=== PATIENT | female | born 1990 | race Caucasian/White ===

== ENCOUNTER 2018-11-17 07:30 | Inpatient (IN) | payer BC ==
--- NOTE | 2018-11-16 22:55 | PREOPHP ---
DATE OF ADMISSION: 11/11/2018 HISTORY OF PRESENT ILLNESS: This is a 28-year-old female, 1, para 0 with an EDC of 9, last period of 02/17/2018. This patient had seen me in the office since 20 weeks of her and she had an uneventful , and she had only GBS-positive results on her culture. Otherwis e, she had a normal evolution of her . She gained about 20 pounds during this , an d at this time, the baby is 39 weeks with breech presentation. The patient is advised for a primary section due to breech presentation. PAST MEDICAL HISTORY: Unremarkable. She has had no surgeries, no medical antecedents. FAMILY HISTORY: Also noncontributory. ALLERGIES: SHE IS NOT ALLERGIC TO ANY MEDICATION. SOCIAL HISTORY: She does not drink or smoke. No history of drugs. PHYSICAL EXAMINATION: VITAL SIGNS: At this time, she is 5 feet 6 inches and she weighs 179 pounds. Her blood pressure is 120/80, pulse is 80, respirations 16. HEAD AND NECK: Normal. CHEST: Clear. HEART: Normal sinus rhythm. LUNGS: Clear. BREASTS: Soft, nontender. No masses. ABDOMEN: Soft. PELVIC: Uterus at term with normal heart tones. Breech presentation. The cervix is closed, l aimee and posterior. EXTREMITIES: Normal with normal pulses, normal reflexes and no edema. DIAGNOSIS: Term at 39 weeks, breech presentation. PLAN: She is undergoing a primary section. She has been advised of the possible risks and possible complications of the procedure with her alternatives and options. Written information was p rovided. She had no more questions and agreed to go ahead with the procedure with full understanding . Dictated By: GERALD BUNDY/NTS Conf#: [id number] DID#: [id number]
[~2018-11-17] VITALS: Ht 170.2 cm; Wt 81.0 kg
[~2018-11-17 07:30] MED LIST: OXYTOCIN 30 UNITS/LR 500 ML BAG IV ONE
[2018-11-17 07:54] VITALS: BP 120/73; PULSE 75; RESP 16; Ht 170.2 cm; Wt 81.0 kg
[2018-11-17] MEDS ORDERED: OXYTOCIN 30 UNITS/LR 500 ML IV SCH ×2 (08:00→11:23)
[2018-11-17] MEDS ORDERED: CEFAZOLIN 2 GM/50 ML (PMX) 50 ML IVPB SCH (08:00)
[2018-11-17] MEDS ORDERED: CARBOPROST 250 MCG INJ IM PRN ×2 (08:00→11:30)
[2018-11-17] MEDS ORDERED: METHYLERGONOVINE 0.2 MG INJ IM PRN ×2 (08:00→11:30)
[2018-11-17] MEDS ORDERED: MISOPROSTOL 200 MCG TAB PR PRN ×2 (08:00→11:30)
[2018-11-17] MEDS ORDERED: OXYTOCIN 30 UNITS/LR 500 ML IV PRN ×2 (08:00→11:30)
[2018-11-17] MEDS: LACTATED RINGER'S 1,000 ML IV SCH ×2 (08:15→11:23)
[2018-11-17] MEDS ORDERED: ONDANSETRON 4 MG INJ ONE (10:09)
[2018-11-17] MEDS ORDERED: morphine SULFATE/PF (10 MG/10 ML) INJ ONE (10:09)
[2018-11-17] MEDS ORDERED: OXYTOCIN 10 UNIT INJ ONE (10:10)
[2018-11-17] MEDS ORDERED: PHENYLephrine 10 MG INJ ONE (10:19)
[2018-11-17] MEDS ORDERED: METOCLOPRAMIDE 10 MG INJ ONE (10:58)
--- NOTE | 2018-11-17 11:02 | PREAC ---
Date/Time of Note Date/Time of Note DATE: 11/17/18 TIME: 10:59 Anesthesia Eval and Record Evaluation Time Pre-Procedure Interview DATE: 11/17/18 TIME: 10:59 Age 28 Sex female NPO: 8 hrs Preoperative diagnosis IUP Planned procedure Csection Past Medical History Past Medical History: None Surgery & Anesthesia Issues No known issue Meds Anticoagulation: No Beta Lis within 24 hr: No Reason Beta Lis not given: Pt. not on B-Lis No Active Prescriptions or Reported Meds Current Medications Lactated Ringer's 1,000 ml @ 125 mls/hr Q8H IV Last administered on 11/17/18at 08:15; Admin Dose 125 MLS/HR; Start 11/17/18 at 07:31 Cefazolin Sodium/ Dextrose 50 ml @ 100 mls/hr ONCE IVPB ; Start 11/17/18 at 08:00 Oxytocin/Lactated Ringer's 500 ml @ 125 mls/hr POST IV ; Start 11/17/18 at 08:00 Oxytocin/Lactated Ringer's 500 ml @ 0 mls/hr ONCE PRN IV .VAGINAL BLEEDING; Start 11/17/18 at 08:00 Methylergonovine Maleate (Methergine) 0.2 mg ONCE PRN IM .VAGINAL BLEEDING; Start 11/17/18 at 08:00 Carboprost Tromethamine (Hemabate) 250 mcg ONCE PRN IM .VAGINAL BLEEDING; Start 11/17/18 at 08:00 Misoprostol (Cytotec) 1,000 mcg ONCE PRN [place] .VAGINAL BLEEDING; Start 11/17/18 at 08:00 Meds reviewed: Yes Allergies Coded Allergies: No Known Allergy (Unverified , 08/07/18) Allergies Reviewed: Yes Labs/Studies Labs Reviewed: Reviewed by anesthesiologist Result Diagram: 11/17/18 0808 Laboratory Tests 11/17/18 08:08 Blood Bank Test 11/17/18 08:08 Antibody Screen NEGATIVE Blood Type A POSITIVE Rh Immune Globulin Candidate NO test: N/A Studies: ECG Pre-procedure Exam Last vitals Vital Signs Date Temp Pulse Resp B/P (MAP) Pulse Ox O2 O2 Flow FiO2 Time Delivery Rate 11/17/18 98.6 75 16 120/73 Room Air 07:54 (89) Airway: Adequate mouth opening, Adequate thyromental dist Mallampati: Mallampati II Teeth: Normal Lung: Normal Heart: Normal ASA Physical Status ASA physical status: 2 Emergency: None Planned Anesthetic Neuraxial: Spinal Planned Pain Management Parenteral pain med Pre-operative Attestations Prior to commencing anesthesia and surgery, the patient was re-evaluated, there was verification of: *The patient's identity *The results of appropriate recent lab work and preoperative vital signs *The above evaluation not changing prior to induction *Anesthetic plan, risk benefits, alternative and complications discussed with patient/family; questions answered; patient/family understands, accepts and wishes to proceed. BENOIT JONES MD Nov 17, 2018 11:02
--- NOTE | 2018-11-17 11:23 | SIPON ---
Date/Time of Note Date/Time of Note DATE: 11/17/18 TIME: 11:21 Operative Report Preoperative Diagnosis 39 weeks Breech presentation Admission for primary section Postoperative Diagnosis Same plus early fibroid uterus Operation/Procedure Performed Primary low segment transverse section Surgeon see signature line assistant art director Dr. Gonzales Anesthesia: spinal Estimated blood loss: other Transfusion Required none Specimen Placenta Grafts/Implants none Complications none GERALD SCOTT MD Nov 17, 2018 11:23
[2018-11-17] MEDS ORDERED: LANOLIN HPA 1 PKT TOP PRN (11:30)
[2018-11-17] MEDS ORDERED: HYDROCODONE/APAP (5/325) TAB PO PRN (11:30)
[2018-11-17] MEDS ORDERED: NA PHOSPHATE/BIPHOS 133 ML ENEMA PR PRN (11:30)
[2018-11-17] MEDS: CEFAZOLIN 2 GM/50 ML (PMX) 50 ML IVPB SCH ×2 (11:30→20:25)
[2018-11-17] MEDS ORDERED: METHYLERGONOVINE 0.2 MG TAB PO PRN (11:30)
--- NOTE | 2018-11-17 11:46 | PAC ---
Date/Time of Note Date/Time of Note DATE: 11/17/18 TIME: 11:45 Post-Anesthesia Notes Post-Anesthesia Note Last documented vital signs Vital Signs Date Temp Pulse Resp B/P (MAP) Pulse Ox O2 O2 Flow FiO2 Time Delivery Rate 11/17/18 98.6 75 16 120/73 Room Air 07:54 (89) Activity: WNL Respiratory function: WNL Cardiovascular function: WNL Mental status: Baseline Pain reasonably controlled: Yes Hydration appropriate: Yes Nausea/Vomiting absent: Yes Comments BP:112/56, P:78, Spo2:100%, T:98,8 BENOIT JONES MD Nov 17, 2018 11:46
[2018-11-17] MEDS ORDERED: DIPHENHYDRAMINE 50 MG INJ IV PRN (12:00)
[2018-11-17] MEDS ORDERED: NALOXONE (0.4 MG/ML) INJ IV PRN (12:00)
[2018-11-17] MEDS ORDERED: KETOROLAC 30 MG INJ IV PRN (12:00)
--- NOTE | 2018-11-17 12:48 | OPR ---
DATE OF OPERATION: 11/17/2018 PROCEDURE: Primary low segment transverse section. PREOPERATIVE DIAGNOSIS: 39 weeks , breech presentation. POSTOPERATIVE DIAGNOSES: 1. 39 weeks , breech presentation. 2. Fibroid uterus. PROCEDURE: Primary low segment transverse section. SURGEON: Geradl Scott MD OIM ARCHITECT: Chaka Gonzales MD ANESTHESIA: Dr. Hernandez. ESTIMATED BLOOD LOSS: About 600 mL. COMPLICATIONS: Without complications. PROCEDURE: The patient was given epidural anesthesia, placed in the supine position. The abdomen wa s prepped and draped, and an incision was made suprapubically 2 cm up the pubic bone of about 10 cm i n diameter. The abdomen was opened in layers without difficulties. Abdominal cavity was reached. T he bladder flap was made, and the uterus was opened in the midline with a scalpel and the incision wa s increased laterally on either side for about 3 inches. The amniotic fluid was clear. The breech w as brought out to the incision. It was a sindy breech presentation. The baby was delivered as a fra nk breech presentation, delivering the arms first and then the finger was placed on the baby's mouth to bend the head and bring the baby out. There was a baby girl, 5, 7 and 9. The cord was clam ped and cut. The piece of the cord was sent for cord pH, which was not sent in due to the good statu s of the baby. The cord blood was obtained. The placenta was removed. The uterus was swabbed out a nd the cervix was opened with a ring forceps. The uterus was closed in 2 layers with 0 PDS looped ortiz ture, imbedding the first line of sutures. Hemostasis was good. Both tubes and ovaries were normal. The uterus with tiny intramural fibroids. The abdominal cavity was cleaned out and the peritoneum was closed with a 2-0 Vicryl suture. The fascia was closed with 0 PDS looped suture and 2-0 Vicryl f or the subcutaneous tissue, 3-0 Monocryl subcuticular to the skin. The Dermabond and Steri-Strips we re applied. The patient tolerated the procedure well and left the OR awake and stable. Sponge count s and instrument counts were correct. Intravenous antibiotics were given for prophylaxis. Blood los s was minimal and about 600 mL and the urine was clear at the end of the procedure. Dictated By: GERALD BUNDY/JOSE Conf#: [id number] DID#: [id number] CC: GERALD SCOTT MD;*EndCC*
[2018-11-17] MEDS: KETOROLAC 30 MG INJ IV SCH ×2 (13:37→18:23)
[2018-11-17] MEDS: morphine 2 MG INJ IV PRN ×2 (15:47→22:56)
[2018-11-17 16:15] VITALS: BP 121/77; PULSE 76; RESP 18
[2018-11-17 16:45] VITALS: BP 120/73; PULSE 82; RESP 18
[2018-11-17 17:45] VITALS: BP 114/61; PULSE 79; RESP 18
[2018-11-17 20:10] VITALS: BP 112/60; PULSE 63; RESP 18
[2018-11-17] MEDS: SENNA/DOCUSATE NA (8.6MG/50MG) TAB PO SCH (21:00)
[2018-11-18] MEDS: KETOROLAC 30 MG INJ IV SCH ×4 (00:21→18:14)
[2018-11-18] MEDS: LACTATED RINGER'S 1,000 ML IV SCH ×2 (00:40→09:27)
[2018-11-18] MEDS: CEFAZOLIN 2 GM/50 ML (PMX) 50 ML IVPB SCH (04:11)
[2018-11-18] MEDS: morphine 2 MG INJ IV PRN ×2 (04:15→09:27)
[2018-11-18 04:56] VITALS: BP 94/58; PULSE 84; RESP 18
[2018-11-18 08:00] VITALS: BP 97/54; PULSE 74; RESP 19
[2018-11-18] MEDS: SENNA/DOCUSATE NA (8.6MG/50MG) TAB PO SCH ×2 (09:27→21:00)
--- NOTE | 2018-11-18 10:40 | PN ---
Date/Time of Note Date/Time of Note DATE: 11/18/18 TIME: 10:38 Assessment/Plan Lines/Catheters IV Catheter Type (from Nrsg): Peripheral IV Subjective 24 Hr Interval Summary Day 1 post Afebrile, feels good Passing some gases Hungry Incision healing good and dry Uterus contracted Breast-feeding Encouraged ambulation Constitutional: no complaints Feeding: advancing diet Pain Control: mild Detailed Summary Eyes: no complaints ENT: no complaints Respiratory: no complaints Cardiovascular: no complaints Gastrointestinal: no complaints Genitourinary: no complaints Musculoskeletal: no complaints Skin: no complaints Neurologic: no complaints Endocrine: no complaints Lymphatic: no complaints Psychological: no complaints, nl mood/affect Immunologic: no complaints Exam/Review of Systems Vital Signs Vitals Vital Signs Date Temp Pulse Resp B/P (MAP) Pulse Ox O2 O2 Flow FiO2 Time Delivery Rate 11/18/18 98.1 84 18 94/58 (70) 97 Room Air 04:56 Intake and Output 11/17/18 11/17/18 11/18/18 1515:00 23:00 07:00 IntakeIntake Total 1000 ml 750 ml OutputOutput Total 600 ml 200 ml BalanceBalance 400 ml 550 ml Exam Constitutional: alert, oriented, well developed Psych: no complaints, nl mood/affect Head: normocephalic, atraumatic Eyes: nl conjunctiva, EOMI, nl lids, nl sclera ENMT: nl external ears & nose, nl lips & teeth, nl nasal mucosa & septum, mucosa pink and moist Neck: supple, non-tender Respiratory: clear to auscultation, normal air movement Cardiovascular: regular rate and rhythm, nl pulses Gastrointestinal: soft, nl liver, spleen, non-tender Musculoskeletal: nl extremities to inspection, nl gait and stance Extremities: normal pulses Neurological: BRIM ROUNDER II-XII intact, nl mental status, nl speech, nl strength Skin: nl turgor, rash or lesions Lymph: nl lymph nodes Results Result Diagram: 11/18/18 0802 GERALD SCOTT MD Nov 18, 2018 10:40
[2018-11-18] MEDS ORDERED: BISACODYL (EC) 5 MG TAB PO ONE (11:00)
[2018-11-18 11:30] VITALS: BP 100/52; PULSE 81; RESP 19
[2018-11-18 16:11] VITALS: BP 107/62; PULSE 80; RESP 18
[2018-11-18 20:10] VITALS: BP 113/70; PULSE 68; RESP 20
[2018-11-18] MEDS: HYDROCODONE/APAP (5/325) TAB PO PRN (22:24)
[2018-11-19] MEDS: HYDROCODONE/APAP (5/325) TAB PO PRN ×4 (02:44→21:42)
[2018-11-19 04:15] VITALS: BP 110/59; PULSE 73; RESP 18
[2018-11-19] MEDS: KETOROLAC 30 MG INJ IV SCH ×2 (05:51)
[2018-11-19 08:30] VITALS: BP 100/60; PULSE 72; RESP 18
[2018-11-19] MEDS: SENNA/DOCUSATE NA (8.6MG/50MG) TAB PO SCH ×2 (10:02→21:41)
--- NOTE | 2018-11-19 11:50 | PN ---
Date/Time of Note Date/Time of Note DATE: 11/19/18 TIME: 11:49 Assessment/Plan Lines/Catheters IV Catheter Type (from Nrsg): Saline Lock Subjective 24 Hr Interval Summary Day 2 post Afebrile Feels good Breast-feeding Uterus contracted Incision healing well Passing gases Possible home in the morning Constitutional: no complaints Feeding: advancing diet Pain Control: mild Detailed Summary Eyes: no complaints ENT: no complaints Respiratory: no complaints Cardiovascular: no complaints Gastrointestinal: no complaints Genitourinary: no complaints Musculoskeletal: no complaints Skin: no complaints Neurologic: no complaints Endocrine: no complaints Lymphatic: no complaints Psychological: no complaints, nl mood/affect Immunologic: no complaints Exam/Review of Systems Vital Signs Vitals Vital Signs Date Temp Pulse Resp B/P (MAP) Pulse Ox O2 O2 Flow FiO2 Time Delivery Rate 11/19/18 97.9 72 18 100/60 Room Air 08:30 (73) 11/18/18 98 08:00 Intake and Output 11/18/18 11/18/18 11/19/18 1515:00 23:00 07:00 IntakeIntake Total 300 ml OutputOutput Total 1000 ml 950 ml BalanceBalance -700 ml -950 ml Exam Constitutional: alert, oriented, well developed Psych: no complaints, nl mood/affect Head: normocephalic, atraumatic Eyes: nl conjunctiva, EOMI, nl lids, nl sclera ENMT: nl external ears & nose, nl lips & teeth, nl nasal mucosa & septum, mucosa pink and moist Neck: supple, non-tender Respiratory: clear to auscultation, normal air movement Cardiovascular: regular rate and rhythm, nl pulses Gastrointestinal: soft, nl liver, spleen, non-tender Musculoskeletal: nl extremities to inspection, nl gait and stance Extremities: normal pulses Neurological: ACCOUNT OFFICER II-XII intact, nl mental status, nl speech, nl strength Skin: nl turgor, rash or lesions Lymph: nl lymph nodes Results Result Diagram: 11/18/18 0802 GERALD SCOTT MD Nov 19, 2018 11:50
[2018-11-19] MEDS ORDERED: BISACODYL (EC) 5 MG TAB PO ONE (12:00)
[2018-11-19 15:30] VITALS: BP 117/55; PULSE 80; RESP 18
[2018-11-19 20:00] VITALS: BP 116/65; PULSE 84; RESP 20
[2018-11-20 04:00] VITALS: BP 108/60; PULSE 82; RESP 18
[2018-11-20] MEDS: ACETAMINOPHEN 325 MG TAB PO PRN ×2 (05:31→09:56)
[2018-11-20] MEDS ORDERED: DIPHTH/TET/ACEL PERTUSS (ADULT) 0.5 ML VIAL IM* ONE (09:00)
[2018-11-20] MEDS: SENNA/DOCUSATE NA (8.6MG/50MG) TAB PO SCH (09:56)
[2018-11-20 10:00] VITALS: BP 124/78; PULSE 92; RESP 18
[2018-11-20] MEDS: HYDROCODONE/APAP (5/325) TAB PO PRN (11:54)
--- NOTE | 2018-11-20 12:15 | PD.PPDC ---
EQUITY DIRECTOR Discharge Instruction Diagnosis [id number] Final Diagnosis: Yjoui2w s/p primary c/s for breech presentation Condition [id number] Patient Condition: Spajb9d Stable Diet [id number] Diet: Jezbz7w Resume Regular Diet Activity/Restrictions [id number] Activity: Xrvam4s May Shower [id number] Restrictions: Dswrr3p No Exercising No Lifting Minimize Stair-climbing No Sexual Activity Nothing in the Vagina No [place] No Tampons, douche Wound/Drain Care Instructions [id number] Wound/Drain Care Instructions: Grgph7d Wash with soap and water Keep clean and dry Follow-up Follow-up with Physician: 2, Week/Weeks Return to clinic for Jimhc1Yq SHEET METAL ERECTOR Instructions: Heazu2n Fever greater than 101 Chills Worsening abdominal pain Excessive Vaginal Bleeding More than 2 pads per hour Unable to tolerate diet [id number] OB Instructions: Kgpqe2v Breast Tenderness Depression Blurried Vision Headache [id number] Surgical Instructions: Aljgc2v Incisional Drainage Incisional Redness PARAMJIT LEAL MD Nov 20, 2018 12:14
--- NOTE | 2018-11-20 12:19 | DS ---
Date/Time of Note Date/Time of Note DATE: 11/20/18 TIME: 12:17 Obstetrical Discharge Record Final Diagnosis Final Diagnosis: Term delivered Section Section: Primary Complications Augmentation: No Induction: No Rupture of Membranes: No Condition on Discharge Physical Assessment Last Vitals: vss afebrile Voiding: Yes Bowel Movement: Yes Breast: Soft, non-tender Fundus: Firm Abdomen and Incision: soft wound dry Episiotomy: n/a Calf Tenderness: No Patient Condition: Stable PARAMJIT LEAL MD Nov 20, 2018 12:18
[2018-11-20] MEDS ORDERED: IBUPROFEN 800 MG TAB PO SCH (14:00)
--- NOTE | 2018-11-21 15:02 | DELSUM ---
Delivery Summary A-C Datetime Report Generated by CPN: 11/21/2018 15:02 DELIVERY PERSONNEL Director Of Religious Activities: Anil Padron MATERNAL INFORMATION Delivery Anesthesia: Spinal Medications in Delivery: see anesthesia record Delivery QBL (ml): 600 Placenta Cultured: No Maternal Complications: Other RN Comments: breech presentation LABOR SUMMARY EDC: 11/24/2018 00:00 No. Babies in Womb: 1 Attempted: No Labor Anesthesia: None LABOR INFORMATION Reason for Induction: Not Applicable Oxytocin: N/A Group B Beta Strep: Positive Antibiotics # of Doses: 1 Antibiotics Time of Last Dose: 11/17/2018 10:25 Steroids Given: None Reason Steroids Not Administered: Not Applicable MEMBRANES Membranes Rupture Method: Artificial Rupture of Membranes: 11/17/2018 10:40 Length of Rupture (hr): 0.02 Amniotic Fluid Color: Clear Amniotic Fluid Amount: Small Amniotic Fluid Odor: None STAGES OF LABOR Stage 3 hr: 0 Stage 3 min: 2 CSECTION DELIVERY Primary Indication: Breech Presentation Secondary Indication: N/A CSection Urgency: Non Elective CSection Incidence: Primary Labor: N/A Elective: Nonelective CSection Incision: Lower Uterine Transverse BABY A INFORMATION Delivery Date/Time: 11/17/2018 10:41 Method of Delivery: Born in Route : No : N/A Forceps: N/A Vacuum Extraction: N/A Shoulder Dystocia : No SHOULDER DYSTOCIA BABY A Infant Delivery Date/Time: 11/17/2018 10:41 PRESENTATION/POSITION BABY A Presentation: Other Cephalic Presentation: N/A Breech Presentation: Bj PLACENTA INFORMATION BABY A Placenta Delivery Time : 11/17/2018 10:43 Placenta Method of Delivery: Manual Removal Placenta Status: Delivered SCORES BABY A Heart Rate 1 min: >100 bpm Resp Effort 1 min: Slow, Irregular Reflex Irritability 1 min: [place] Muscle Tone 1 min: Some Flexion of Extrem Color 1 min: Blue/Pale Resuscitation Effort 1 min: Tactile Stimulation; Oxygen SCORE 1 MIN: 5 Heart Rate 5 min: >100 bpm Resp Effort 5 min: Good Cry Reflex Irritability 5 min: Grimace Muscle Tone 5 min: Some Flexion of Extrem Color 5 min: Body [place], Extremit Blue Resuscitation Effort 5 min: Tactile Stimulation SCORE 5 MIN: 7 Heart Rate 10 min: >100 bpm Resp Effort 10 min: Good Cry Reflex Irritability 10 min: Cough/Sneeze/Pulls Away Muscle Tone 10 min: Active Motion Color 10 min: Body [place], Extremit Blue Resuscitation Effort 10 min: N/A SCORE 10 MIN: 9 INFORMATION BABY A Gestational Age at Delivery: 39.0 Gestational Status: Full Term- 39- 40.6 Weeks Infant Outcome : Liveborn Infant Condition : Stable Infant Sex: Female IDENTIFICATION/MEDS BABY A ID Band Number: [id number] ID Band Location: Right Leg; Left Arm Sensor Applied: Yes Sensor Number: [id number] Sensor Location : Cord Clamp Vitamin K Given : Not Given Erythromycin Given: Not Given WEIGHT/LENGTH BABY A Birthweight (gm): 2995 Infant Weight (lb): 6 Weight (oz): 10 Length (in): 19.50 Infant Length (cm): 49.53 CORD INFORMATION BABY A No. Cord Vessels: 3 Nuchal Cord : N/A Cord Blood Taken: Yes Suction: Mouth; Nose ASSESSMENT BABY A Complications: None Physical Findings at Delivery: Within Normal Limits Respirations: Appears Normal [place] Supervisor/ALS Called : No Infant Care By: HELADIO Powell RN Transferred To: Remains with Mother
== END 2018-11-20 14:15 | disposition home or self-care (01) | DRG 788 ==
LOC: L-D 07:30 → PP1 16:03
PROVIDERS: ADMIT Obstetrics & Gynecology; ATTEND Obstetrics & Gynecology
PROC: 10D00Z1 Extraction of Products of Conception, Low, Open Approach (ICD-10-PCS; principal; 2018-11-17 09:00)
DX: O32.1XX0 Maternal care for breech presentation, not applicable or unspecified (principal); O34.13 Maternal care for benign tumor of corpus uteri, third trimester; D25.1 Intramural leiomyoma of uterus; Z3A.39 39 weeks gestation of pregnancy; Z37.0 Single live birth
CPT/HCPCS: 76815; 85025; 85610; 85730; 86592; 86850; 86900; 86901; 87340; 99464; J0690; J1885; J2270; J2274; J2405; J2590; J2765; J7120